=== PATIENT | male | born 1960 | race Caucasian/White ===

== ENCOUNTER 2018-02-18 09:16 | Outpatient (CLI) | payer BC ==
[~2018-02-18] VITALS: Ht 167.6 cm; Wt 78.0 kg
[2018-02-19] MEDS ORDERED: DOCU-143 PO (14:21)
== END 2018-02-18 09:40 | disposition home or self-care (01) ==
LOC: PREOP 09:16
PROVIDERS: ATTEND Surgery
DX: Z01.818 Encounter for other preprocedural examination (principal)

== ENCOUNTER 2018-02-19 10:10 | Day surgery (SDC) | payer BC ==
[~2018-02-19] VITALS: Ht 167.6 cm; Wt 78.0 kg
[2018-02-19 10:20] VITALS: BP 135/85
[2018-02-19] MEDS: LACTATED RINGERS 1,000 ML IV PRN ×2 (10:35→14:20)
[2018-02-19] MEDS ORDERED: MIDAZOLAM 2 MG/2 ML (VERSED) VIAL ONE ×2 (11:27→12:06)
[2018-02-19] MEDS ORDERED: PROPOFOL INJECTION 50 ML IV ONE (11:27)
--- NOTE | 2018-02-19 13:10 | Progress Note-Pre Operative ---
Pre-Operative Progress Note H&P Reviewed The H&P was reviewed, patient examined and no changes noted. Date Seen by Provider: Feb 19, 2018 Time Seen by Provider: 13:09 Date H&P Reviewed: Feb 19, 2018 Time H&P Reviewed: 13:09 Pre-Operative Diagnosis: bright red blood in stool BHUPINDER CRUM DO Feb 19, 2018 13:10
--- NOTE | 2018-02-19 14:20 | Progress Note-Post Operative ---
Post-Operative Progess Note Surgeon (s)/Quality Assurance Nurse (s) Surgeon BHUPINDER CRUM DO Quality Assurance Nurse: na Pre-Operative Diagnosis bright red blood in stool Post-Operative Diagnosis posterior fissure, colon polyp ascending colon and sigmoid polyp Procedure & Operative Findings Date of Procedure 02/19/18 Procedure Performed/Findings colonoscopy c hot bx polypectomy and snare polypectomy sigmoid polyp c gabino inking Anesthesia Type per endo tech Estimated Blood Loss Estimated blood loss (mL): min Specimens/Packing Specimens Removed ascending and sigmoid polyp BHUPINDER CRUM DO Feb 19, 2018 14:20
[2018-02-19] MEDS ORDERED: DOCU-143 PO (14:21)
--- NOTE | 2018-02-19 14:21 | Discharge Inst-Simple/Standard ---
Discharge Inst-Standard Discharge Medications New, Converted or Re-Newed RX: Transmitted to Pharmacy Patient Instructions/Follow Up Plan of Care/Instructions/FU: 2 weeks robyn Activity as Tolerated: Yes Discharge Diet: Regular Diet (high fiber) BHUPINDER CRUM DO Feb 19, 2018 14:21
[2018-02-19 14:25] VITALS: BP 134/73
[2018-02-19 14:55] VITALS: BP 125/86
--- NOTE | 2018-02-19 22:58 | OPERATIVE REPORT ---
DATE OF SERVICE: 02/19/2018 PREOPERATIVE DIAGNOSES: Blood in stools. History of polyps. POSTOPERATIVE DIAGNOSIS: Posterior fissure, ascending and sigmoid colon polyps. PROCEDURE: Colonoscopy with hot biopsy polypectomy and snare polypectomy of sigmoid polyp within the inking. SURGEON: Bhupinder Salgado D.O. ANESTHESIA: Per FINISHED GARMENT INSPECTOR. ESTIMATED BLOOD LOSS: Minimal. COMPLICATIONS: None. INDICATIONS: The patient is a 57-year-old male who has been having some bright red bleeding per rectum and also stool. He understands risks and benefits of procedure and wished to proceed with procedure. Consent was signed on the chart. DESCRIPTION OF PROCEDURE: The patient was taken to the endoscopy suite, placed in left lateral recumbent position. Timeout was performed. Digital rectal exam was performed. There was a posterior fissure noted. No active bleeding. Scope was inserted in the rectum and advanced all the way to the cecum with minimal difficulty. Prep was adequate. There were no polyps, mass or ulcerations in the cecum. In the ascending colon, a small polyp was present, which hot biopsy polypectomy was performed. Scope was continued to be slowly retracted back. There were no polyps, mass or ulcerations in the transverse colon, descending colon. In the sigmoid colon, there was a larger pedunculated polyp, which Priscilla inking was placed just distal to 1 mL in two different spots and the snare polypectomy was then performed. The specimen was then had to be withdrawn using the scope suction. Scope was brought out to remove the polyp from the tip of the suction. Scope was reinserted into the area where the polyp was in the sigmoid colon. Scope was then continued slowly retracted back from that point. No other polyps, masses or ulcerations were present. Scope was then slowly retracted into the rectum where it was also retroflexed noting no other pathology. Scope was returned to its normal position, slowly withdrawn until completely removed, noting the anal fissure. RECOMMENDATIONS: The patient will be on high fiber diet, Colace 100 mg twice a day and also diltiazem cream four times a day just inside the anus. He will follow up in the office in 2 weeks to discuss pathology and reexamine to see how he is doing at that time. Job ID: [id number] DocumentID: [id number] Dictated Date: 02/19/2018 14:28:40 Museum Librarian Date: 02/19/2018 22:57:41 Dictated By: BHUPINDER SALGADO DO
== END 2018-02-19 15:00 | disposition home or self-care (01) ==
LOC: ENDO 10:10
PROVIDERS: ATTEND Surgery
DX: D12.2 Benign neoplasm of ascending colon (principal); D12.5 Benign neoplasm of sigmoid colon; K60.2 Anal fissure, unspecified

== ENCOUNTER 2018-03-13 12:48 | Outpatient (CLI) | payer BC ==
[~2018-03-13] VITALS: Ht 167.6 cm; Wt 78.0 kg
[~2018-03-13 12:48] MED LIST: DOCU-143 PO
[2018-03-13] MEDS ORDERED: LORA-877 PO (13:42)
== END 2018-03-13 14:08 | disposition home or self-care (01) ==
LOC: PREOP 12:48
PROVIDERS: ATTEND Surgery
DX: Z01.818 Encounter for other preprocedural examination (principal)

== ENCOUNTER 2018-03-15 07:46 | Day surgery (SDC) | payer BC ==
[~2018-03-15] VITALS: Ht 167.6 cm; Wt 78.0 kg
[~2018-03-15 07:46] MED LIST changes: +LORA-877 PO
[2018-03-15] MEDS ORDERED: LACTATED RINGERS 1,000 ML IV PRN (07:58)
[2018-03-15] MEDS ORDERED: ceFAZolin INJECTION 1,000 MG in NS (IVPB) 50 ML IV ONE (08:00)
[2018-03-15] MEDS ORDERED: metroNIDAZOLE 500MG/100ML IVPB 100 ML IV ONE (08:00)
[2018-03-15 08:35] VITALS: BP 140/84
[2018-03-15] MEDS ORDERED: LIDOCAINE PF 2% 5 ML (XYLOCAINE) VIAL ONE (09:52)
[2018-03-15] MEDS ORDERED: LACTATED RINGERS 1,000 ML IV ONE (09:52)
[2018-03-15] MEDS ORDERED: MIDAZOLAM 2 MG/2 ML (VERSED) VIAL ONE (09:52)
[2018-03-15] MEDS ORDERED: SEVOFLURANE (ULTANE) 15 ML INHAL SOLN ONE ×4 (09:52→10:57)
[2018-03-15] MEDS ORDERED: ONDANSETRON 4 MG/2 ML (SDV) Z0FRAN ONE ×2 (09:52)
[2018-03-15] MEDS ORDERED: fentaNYL INJECTION 100 MCG/2 ML AMP ONE (09:52)
[2018-03-15] MEDS ORDERED: DEXAMETHASONE 10 MG/ML (DECADRON) 1 ML VIAL ONE (09:52)
[2018-03-15] MEDS ORDERED: proPOfol 200 MG/20 ML (DIPRIVAN) VIAL IV ONE (09:52)
[2018-03-15] MEDS ORDERED: LIDOCAINE 1% INJ 20 ML 20 ML VIAL ONE (10:01)
[2018-03-15] MEDS ORDERED: BUPIVACAINE 0.5% 30 ML (SENSORCAINE) VIAL ONE (10:01)
--- NOTE | 2018-03-15 10:35 | Progress Note-Pre Operative ---
Pre-Operative Progress Note H&P Reviewed The H&P was reviewed, patient examined and no changes noted. Date Seen by Provider: Mar 15, 2018 Time Seen by Provider: 10:35 Date H&P Reviewed: Mar 15, 2018 Time H&P Reviewed: 10:35 Pre-Operative Diagnosis: anal fistula BHUPINDER CRUM DO Mar 15, 2018 10:35
[2018-03-15] MEDS ORDERED: ACHD5005 PO (11:10)
--- NOTE | 2018-03-15 11:12 | Discharge Inst-Simple/Standard ---
Discharge Inst-Standard Discharge Medications New, Converted or Re-Newed RX: RX on Chart Patient Instructions/Follow Up Plan of Care/Instructions/FU: 2 weeks Naomi Activity as Tolerated: No Discharge Diet: Regular Diet Other Inst to Patient Follow up Appt: Make appointment for 2 week. Instructions: No lifting greater than 10 pounds. No strenuous activity. May shower in 24 hours, no tub bath or soaking. Use incentive spirometer at home as directed. No Smoking Skin/Wound Care: Keep area clean and dry. May use sitz baths after bowel movements clean and pat dry. Symptoms to Report: Appetite Changes, Extremity Discoloration, Numbness/Tingling, Swelling Increased , Bleeding Excessive, Eyesight Changes, Pain Increased, Urine Color Change, Constipation(Persistent), Fever over 101 degree F, Pain/Pressure in chest, Urinating Difficulty, Cough Up/Vomit Blood, Heart Beat Irreg/Pounding, Pain/ Pressure in jaw, Vaginal Bleeding Increase, Cramps in feet or legs, Lightheadedness, Pain/Pressure in shoulder, Diarrhea(Persistent), Memory Changes Suddenly, Questions/Concerns, Weight gain consecutive days, Dizziness/ Fainting, Nausea/Vomiting, Shortness of Breath, Weight gain over 2 pounds If questions or concerns contact your physician Or seek help at emergency department. BHUPINDER CRUM DO Mar 15, 2018 11:12
--- NOTE | 2018-03-15 11:13 | Progress Note-Post Operative ---
Post-Operative Progess Note Surgeon (s)/Intelligence Director (s) Surgeon BHUPINDER CRUM DO Intelligence Director: na Pre-Operative Diagnosis anal fistula Post-Operative Diagnosis same Procedure & Operative Findings Date of Procedure 03/15/18 Procedure Performed/Findings rectal exam under anesthesia, fistulectomy with marsupialization Anesthesia Type gen Estimated Blood Loss Estimated blood loss (mL): min Specimens/Packing Specimens Removed fistula tract BHUPINDER CRUM DO Mar 15, 2018 11:13
[2018-03-15] MEDS ORDERED: MEPERIDINE (DEMEROL) INJ 50 MG/ML IVP ONE (11:30)
[2018-03-15] MEDS ORDERED: PROMETHAZINE INJ 25 MG/ML (PHENERGAN) AMP IVP ONE (11:30)
[2018-03-15] MEDS ORDERED: morphine INJ 10 MG/ML 1ML (SYR OR VIAL) IVP ONE (11:30)
[2018-03-15] MEDS ORDERED: HYDROmorphone 2 MG/ML VIAL (DILAUDID) IV ONE (11:30)
[2018-03-15] MEDS ORDERED: ONDANSETRON 4 MG/2 ML (SDV) Z0FRAN IVP PRN (11:30)
[2018-03-15 12:10] VITALS: BP 124/80
[2018-03-15 12:40] VITALS: BP 125/92
[2018-03-15 13:10] VITALS: BP 130/84
--- NOTE | 2018-03-15 13:14 | Anesthesia-General Post-Op ---
General Patient Condition Mental Status/LOC: Same as Preop Cardiovascular: Satisfactory Nausea/Vomiting: Absent Respiratory: Satisfactory Pain: Controlled Complications: Absent Post Op Complications Complications None Follow Up Care/Instructions Patient Instructions None needed. Anesthesia/Patient Condition Patient Condition Patient was seen after the procedure and he was doing well, no complaints, stable vital signs, no apparent adverse anesthesia problems. REGGIE CARRION DO Mar 15, 2018 13:14
--- NOTE | 2018-03-15 15:25 | OPERATIVE REPORT ---
DATE OF SERVICE: 03/15/2018 PREOPERATIVE DIAGNOSIS: Anal fissure. POSTOPERATIVE DIAGNOSIS: Anal fissure. PROCEDURE: Rectal exam under anesthesia, fistulectomy with marsupialization. SURGEON: Bhupinder Salgado DO. ANESTHESIA: General. ESTIMATED BLOOD LOSS: Minimal. COMPLICATIONS: None. INDICATIONS: The patient is a 57-year-old male with anal fistula. He understands risks and benefits of procedure and wishes to proceed with procedure. Consent was signed on the chart. DESCRIPTION OF PROCEDURE: The patient was taken to the operating suite, was placed in lithotomy position. Timeout was performed. Digital rectal exam was performed. There were no palpable polyps or masses. Small posterior anal fissure is present. This was where the fistula tract appears to begin. A probe was able to be inserted through this and brought posteriorly where the extra portion of the fistula tract was present. The probe was inserted and held in place. Local anesthetic of 0.5% Marcaine and 1% lidocaine in 50:50 ratio was used to anesthetize the area. Cautery was used to excise the fistula tract down through where the probe was present. A 3-0 Vicryl was then used to marsupialize the fistula tract. The area was then washed and dried, sterile bandage was applied. The patient tolerated the procedure well without any complications, taken to recovery room in stable condition. Job ID: [id number] DocumentID: [id number] Dictated Date: 03/15/2018 11:16:36 Manager Union Date: 03/15/2018 15:24:05 Dictated By: BHUPINDER SALGADO DO
== END 2018-03-15 13:15 | disposition home or self-care (01) ==
LOC: SDC 07:46
PROVIDERS: ATTEND Surgery
DX: K60.2 Anal fissure, unspecified (principal)
CPT/HCPCS: 87081

== ENCOUNTER 2022-02-27 05:40 | Outpatient (CLI) | payer BC ==
[~2022-02-27] VITALS: Ht 167.6 cm; Wt 80.7 kg
[~2022-02-27 05:40] MED LIST changes: +ACHD5005 PO; +LISI10TA25; +METR-145; +MINO100C5
== END 2022-02-28 09:37 | disposition home or self-care (01) ==
LOC: PREOP 05:40
PROVIDERS: ATTEND Internal Medicine
DX: Z01.818 Encounter for other preprocedural examination (principal)

== ENCOUNTER 2022-03-03 07:03 | Day surgery (SDC) | payer BC ==
--- NOTE | 2022-02-28 02:56 | HISTORY AND PHYSICAL ---
DATE OF SERVICE: EGD HISTORY AND PHYSICAL DATE OF ADMISSION: 03/03/2022 HISTORY OF PRESENT ILLNESS: The patient is a 61-year-old white male with distant past history of Amandeep fundoplication which he reports had worked well up until the past several years with no problems with reflux, which previously had been severe symptomatically. He denied previous issues with stricture formation or the need for dilatation. For the past several years, he has been having intermittent dysphagia to solids. This results in regurgitation; the last occurrence was two weeks ago. He denies any significant heartburn, although he was recently started on Pepcid 20 mg twice daily. He has had no trouble with liquids and denies weight loss, melena, bright red blood per rectum or abdominal pain. He last underwent colonoscopy in [address] Salgado and had several adenomas removed. PAST SURGICAL HISTORY: Other than Amanedep fundoplication is significant for distant past history of appendectomy and underwent cholecystectomy for cholecystitis with cholelithiasis in 06/2019. PAST MEDICAL HISTORY: Significant for hypertension, hyperlipidemia with no known history for vascular disease. PHYSICAL EXAMINATION: GENERAL: Reveals a white male, appeared to be in no acute distress. Sclerae nonicteric. HEENT: Unremarkable. Mallampati 2 oropharyngeal configuration. VITAL SIGNS: Blood pressure 134/72. CHEST: Clear. CARDIOVASCULAR: Reveals regular rate and rhythm without murmur, S3 or S4. ABDOMEN: Soft, supple without mass, organomegaly or tenderness. EXTREMITIES: Reveal no cyanosis, clubbing or edema. ASSESSMENT AND PLAN: The patient is being set up for diagnostic EGD due to history of dysphagia with solids and past Amandeep fundoplication. Prep instructions were given, and questions were answered. Advised avoiding difficult to chew solids with careful attention to mastication. Job ID: [id number] DocumentID: [id number] Dictated Date: 02/23/2022 18:20:43 Lean Consultant Date: 02/23/2022 18:33:20 Dictated By: ANISHA MILLER MD
[~2022-03-03] VITALS: Ht 167.6 cm; Wt 80.7 kg
[2022-03-03] MEDS ORDERED: LACTATED RINGERS 1,000 ML IV STA (07:04)
[2022-03-03] MEDS ORDERED: HURRICAINE EXT TUBE (BENZOCAINE) XX PRN (07:15)
[2022-03-03] MEDS ORDERED: MIDAZOLAM 2 MG/2 ML (VERSED) VIAL ONE (07:17)
[2022-03-03] MEDS ORDERED: PROPOFOL INJECTION 50 ML IV ONE (07:18)
[2022-03-03 07:29] VITALS: BP 128/75
--- NOTE | 2022-03-03 07:45 | Pre-Op Note & Conscious Sedat ---
Pre-Operative Progress Note Date H&P Reviewed: Mar 03, 2022 Time H&P Reviewed: 07:44 History & Physical: H&P Reviewed, Patient Examed, No changes noted Pre-Op Diagnosis: dysphagia Conscious Sedation Pre-Proced ASA Score 2 For ASA 3 and 4: Consider anesthesia and medical clearance. Also, for patients with a history of failed moderate sedation consider anesthesia. Airway Lungs Heart ASA score ASA 1: a normal healthy patient ASA 2: a patient with a mild systemic disease (mid diabetes, controlled hypertension, obesity ASA 3: a patient with a severe systemic disease that limits activity (angina, COPD, prior Myocardial infarction) ASA 4: a patient with an incapacitating disease that is a constant threat to life (CHF, renal failure) ASA 5: a moribund patient not expected to survive 24 hrs. (ruptured aneurysm) ASA 6: a declared brain- patient whose organs are being harvested. For emergent operations, add the letter E after the classification Mallampati Classification Grade 2 Sedation Plan Analgesia, Amnesia, Plan communicated to team members, Discussed options with patient/fam, Discussed risks with patient/fam The patient is an appropriate candidate to undergo the planned procedure, sedation, and anesthesia. The patient immediately re-assessed prior to indication. ANISHA MILLER MD Mar 03, 2022 07:45
[2022-03-03 08:10] VITALS: BP 98/57
[2022-03-03 08:15] VITALS: BP 99/58
--- NOTE | 2022-03-03 08:15 | Progress Note-Post Operative ---
Post-Procedure Note Physician (s)/Lead Slot Technician (s) Physician ANISHA MILLER MD Pre-Procedure Diagnosis Pre-Procedure Diagnosis: dysphagia Post-Procedure Note Findings/Procedure Note Patient underwent EGD for dysphagia with reflux symptoms with a history of Amandeep fundoplication. EGD was inserted in the oral cavity and in direct relation in the esophagus intubated. The endoscope was passed down the esophagus to the stomach and second portion of the duodenum. Careful suction was made as the scope was withdrawn. Findings: The posterior pharynx arytenoid aperture epiglottis and true and false vocal folds were unremarkable. The proximal mid and distal esophagus were unremarkable except for little tortuosity involving the distal esophagus. There was some mild erythema noted at the Z-line and it did take a little more than average pressure on the scope to intubate the stomach. There was no evidence for stricture formation. There is an intact fundoplication and the cardia is otherwise unremarkable. The antrum was unremarkable as well there is some patchy areas of erythema in the antrum. A biopsy was obtained and submitted for histopathology and helical back to her evaluation. No evidence of peptic ulcer disease was noted. The pylorus the pyloric channel duodenal bulb and second portion the duodenum were unremarkable. The balloon dilator was then utilized to 20 mm size passed across the gastroesophageal junction with no significant bleeding. A biopsy was obtained from the Z-line and submitted For histopathology. We discussed the importance of careful attention to mastication and slowing down eating time and reinitiation of omeprazole for reflux symptoms with further recommendations pending histopathology. Sincerely, Anisha Miller MD. Post-Procedure Diagnosis Post-operative diagnosis: Dysphagia ANISHA MILLER MD Mar 03, 2022 08:15
[2022-03-03 08:20] VITALS: BP 99/60
[2022-03-03 08:40] VITALS: BP 101/68
[2022-03-03 09:01] VITALS: BP 101/68
--- NOTE | 2022-03-03 11:29 | Anesthesia-General Post-Op ---
MAC Patient Condition Mental Status/LOC: Same as Preop Cardiovascular: Satisfactory Nausea/Vomiting: Absent Respiratory: Satisfactory Pain: Controlled Complications: Absent Post Op Complications Complications None Follow Up Care/Instructions Patient Instructions None needed. Anesthesiology Discharge Order Discharge Order Patient is doing well, no complaints, stable vital signs, no apparent adverse anesthesia problems. No complications reported per nursing. NOLBERTO FLORES CRNA Mar 03, 2022 11:29
== END 2022-03-03 09:00 | disposition home or self-care (01) ==
LOC: ENDO 07:03
PROVIDERS: ATTEND Internal Medicine
DX: K21.00 Gastro-esophageal reflux disease with esophagitis, without bleeding (principal); K31.89 Other diseases of stomach and duodenum

== ENCOUNTER 2023-02-21 10:21 | Outpatient (CLI) | payer BC ==
[~2023-02-21] VITALS: Ht 167.6 cm; Wt 80.7 kg
[~2023-02-21 10:21] MED LIST changes: -LISI10TA25; +LISI10TA25 PO
[2023-02-21] MEDS ORDERED: ROSU10TA28 PO (11:20)
[2023-02-21] MEDS ORDERED: DOXY100T2 PO (11:20)
== END 2023-02-21 11:24 | disposition home or self-care (01) ==
LOC: PREOP 10:21
PROVIDERS: ATTEND Internal Medicine
DX: Z01.818 Encounter for other preprocedural examination (principal)

== ENCOUNTER 2023-02-23 09:32 | Day surgery (SDC) | payer BC ==
--- NOTE | 2023-02-22 01:49 | HISTORY AND PHYSICAL ---
COLONOSCOPY HISTORY AND PHYSICAL HISTORY OF PRESENT ILLNESS: The patient is a 62-year-old white male seen for yearly wellness evaluation. He has a history of hyperlipidemia, elevated liver function tests compatible with nonalcoholic fatty liver disease, rosacea and hypertension with no known history of coronary artery disease. He last underwent colonoscopy 10 years ago, at which time he did have one tubular adenoma removed from the cecum. He denies bowel habit change, bright red blood per rectum, melena. He has been feeling well. His weight was down 7 pounds and he reports that he and his have reduced carbohydrate intake and they had been walking on a regular basis. He reports that he feels well and he voiced no complaints. FAMILY HISTORY: Pertinent for melanoma in his father. He does get yearly skin check and has had no history of dysplastic nevi. There is history of coronary artery disease on both sides of the family, but not early. Reports no other diseases run in the family. SOCIAL HISTORY: He employed, . No significant alcohol consumption and past smoking history. He received his flu shot. PHYSICAL EXAMINATION: GENERAL: Reveals a white male, appeared to be in no acute distress. HEENT: Unremarkable. VITAL SIGNS: Weight down 7 pounds from one year ago, at 271, BMI 27, blood pressure 118/70. NECK: Revealed no JVD, adenopathy or bruits. Ear canals clear with normal TMs. CHEST: Clear to auscultation. CARDIOVASCULAR: Reveals regular rate and rhythm without murmur, S3, or S4. ABDOMEN: Soft, supple without mass, organomegaly, or tenderness. Well-healed right lower quadrant appendectomy scar. EXTREMITIES: Revealed no cyanosis, clubbing or edema. SKIN: Evaluation reveals no suspicious nevi. ASSESSMENT AND PLAN: 1. Blood tests were reviewed with the patient with normalization of liver function tests. We planned that likely due to weight loss and improvement in fatty liver disease. He qualifies for stage III chronic renal disease with a GFR of 54, which has been stable. Over the past year, slightly improved from 52, 6 months ago with parameters improved as well with a total cholesterol of 155, HDL of 47, triglyceride level 125 and LDL of 83. PSA low at 1.4 with normal CBC. 2. The patient is being set up for screening colonoscopy. Prep instructions were given and questions were answered. 3. The patient was commended for positive lifestyle change, pointing out the improvement but had likely fatty liver disease. With normalization of liver function test, strongly encouraged continue. Advised COVID vaccine and Shingrix. We will have him follow up with [facility] in 6 months. Job ID: [id number] DocumentID: [id number] Dictated Date: 02/21/2023 09:32:25 Real Estate Rental Agent Date: 02/21/2023 09:48:00 Dictated By: ANISHA MILLER MD
[~2023-02-23] VITALS: Ht 167.6 cm; Wt 80.7 kg
[~2023-02-23 09:32] MED LIST changes: +DOXY100T2 PO; +ROSU10TA28 PO
[2023-02-23] MEDS ORDERED: LACTATED RINGERS 1,000 ML 1,000 ML IV STA (09:39)
--- NOTE | 2023-02-23 09:56 | Pre-Op Note & Conscious Sedat ---
Pre-Operative Progress Note Date H&P Reviewed: Feb 23, 2023 Time H&P Reviewed: 09:56 History & Physical: H&P Reviewed, Patient Examed, No changes noted Pre-Op Diagnosis: screening Moderate Sedation PreProcedure ASA Score 2 Airway Lungs Heart ASA score ASA 1: a normal healthy patient ASA 2: a patient with a mild systemic disease (mid diabetes, controlled hypertension, obesity ASA 3: a patient with a severe systemic disease that limits activity (angina, COPD, prior Myocardial infarction) ASA 4: a patient with an incapacitating disease that is a constant threat to life (CHF, renal failure) ASA 5: a moribund patient not expected to survive 24 hrs. (ruptured aneurysm) ASA 6: a declared brain- patient whose organs are being harvested. For emergent operations, add the letter E after the classification Mallampati Classification Grade 2 Sedation Plan Analgesia, Amnesia, Plan communicated to team members, Discussed options with patient/fam, Discussed risks with patient/fam The patient is an appropriate candidate to undergo the planned procedure, sedation, and anesthesia. The patient immediately re-assessed prior to indication. ANISHA MILLER MD Feb 23, 2023 09:56
[2023-02-23 10:11] VITALS: BP 134/71
[2023-02-23 11:05] VITALS: BP 88/50
[2023-02-23 11:10] VITALS: BP 85/50
[2023-02-23 11:15] VITALS: BP 88/53
--- NOTE | 2023-02-23 11:16 | Progress Note-Post Operative ---
Post-Procedure Note Physician (s)/Star[employer] Clerk (s) Physician ANISHA MILLER MD Pre-Procedure Diagnosis Pre-Procedure Diagnosis: screening Post-Procedure Diagnosis Post-operative diagnosis: Prior to undergoing colonoscopy digital rectal evaluation was performed. Anal sphincter tone was normal and the perianal reflex was intact. Prostate is normal in size and a nodular on digital inspection. No abnormalities noted on digital inspection anal canal distal rectal vault. The colonoscope was then inserted into the rectum and under direct visualization advanced to the cecum. The cecum was identified by identification of the ileocecal valve and cecal strap. Photographic documentation was obtained. A careful inspection was made as the colonoscope withdrawn. Quality the prep was good. Findings: There are no evidence for internal or external hemorrhoids in the rectum and sigmoid colon were unremarkable save for a few small sigmoid diverticulum. There was no evidence of diverticulitis. Present in the distal descending colon was a 3 mm sessile polyp that was photographed and biopsied and ablated with no subsequent blood loss. A tattoo was noted in the sigmoid colon but there was no evidence for any surrounding neoplasia. The splenic flexure was unremarkable present the proximal transverse colon was a sessile one by one and half centimeter polyp it had uniform vascular pattern on NBI evaluation and no evidence for ulceration. It was biopsied in 3 locations and cauterized with no significant blood loss. The splenic flexure ascending colon and cecum were unremarkable. A/P 1. 2 polyps were removed with more substantial from the proximal transverse colon measuring about 1 x 1.5 cm. He was biopsied and cauterized in 3 locations with no significant blood loss. A 3 to 4 mm mass sessile distal descending colon was biopsied and cauterized with no blood loss. Mild diverticular disease confined sigmoid colon was present. As long as there are no surprises on histopathology report we will be advocating repeat surveillance colonoscopy in 1 year. ANISHA MILLER MD Feb 23, 2023 11:16
[2023-02-23 11:20] VITALS: BP 115/66
[2023-02-23 11:47] VITALS: BP 115/66
--- NOTE | 2023-02-23 12:02 | Anesthesia-General Post-Op ---
MAC Patient Condition Mental Status/LOC: Same as Preop Cardiovascular: Satisfactory Nausea/Vomiting: Absent Respiratory: Satisfactory Pain: Controlled Complications: Absent Post Op Complications Complications None Follow Up Care/Instructions Patient Instructions None needed. Anesthesiology Discharge Order Discharge Order Patient was doing well after the procedure with no complaints, stable vital signs, no apparent adverse anesthesia problems. No complications reported per nursing. REGGIE CARRION DO Feb 23, 2023 12:02
== END 2023-02-23 11:47 | disposition home or self-care (01) ==
LOC: ENDO 09:32
PROVIDERS: ATTEND Internal Medicine
DX: Z12.11 Encounter for screening for malignant neoplasm of colon (principal); D12.3 Benign neoplasm of transverse colon; K63.5 Polyp of colon; K57.30 Diverticulosis of large intestine without perforation or abscess without bleeding; K76.0 Fatty (change of) liver, not elsewhere classified; Z28.310 Unvaccinated for COVID-19
CPT/HCPCS: 88305